=== PATIENT | male | born 1985 | race African-American/Black ===

== ENCOUNTER 2016-09-05 19:49 | Emergency (ER) | payer OTHER ==
[~2016-09-05 19:49] MED LIST: ALBUTEROL17 GM INH; AMOXICILLIN PO; AMOXICILLIN500 M1 PO; AURALGAN OTIC S14 ML OT; CIPRO500 MG/5 M PO; CIPROFLOXACIN500 M1 PO; DOXYCYCLINE HY100 M1 PO; DOXYCYCLINE HY100 M3 PO; DOXYCYCLINE150 MG PO; FLEXERIL10 MG PO; FLOXIN OTIC5 M1 AS; IBUPROFEN; IBUPROFEN800 MG PO; KETOPROFEN PO; METRONIDAZOLE PO; MOTRIN600 MG PO; NAPROSYN500 MG PO; ORUDIS75 M1 DOB; ORUDIS75 M1 PO; VICODIN 5/1 TAB 5/50 PO; ZANTAC150 MG PO
== END 2016-09-05 20:20 | disposition home or self-care (01) ==
LOC: CFTX 19:49
DX: J45.901 Unspecified asthma with (acute) exacerbation (principal)
CPT/HCPCS: 94640; 99282

== ENCOUNTER 2016-09-27 12:31 | Emergency (ER) | payer OTHER | END 2016-09-27 13:01 | disposition home or self-care (01) | LOC: CFTX 12:31 | DX: J45.31 Mild persistent asthma with (acute) exacerbation (principal); H10.10 Acute atopic conjunctivitis, unspecified eye; Z87.442 Personal history of urinary calculi | CPT/HCPCS: 99283 ==

== ENCOUNTER 2016-09-27 22:57 | Emergency (ER) | payer OTHER ==
--- NOTE | ~2016-09-27 | EKG ---
PATIENT: EMILE DUENAS UNIT #: [id number] Ventricular Rate: 86 BPM Atrial Rate: 86 BPM P-R Interval: 190 ms QRS Duration: 90 ms Q-T Interval: 356 ms QTC Calculation(Bezet): 426 ms P [place]: 26 degrees Calculated R [place]: 66 degrees Calculated T [place]: 32 degrees Diagnosis Line: Normal sinus rhythm Diagnosis Line: Normal ECG Diagnosis Line: When compared with ECG of 16-DEC-2015 12:54, Diagnosis Line: No significant change was found Diagnosis Line: Confirmed by JOSE TYLER MD ([id number]) on 10/06/2016 Diagnosis Line: 11:51:34 AM INTERPRETING MD: NAYELI GAVIN
== END 2016-09-27 23:59 | disposition home or self-care (01) ==
LOC: SED 22:57
DX: R11.2 Nausea with vomiting, unspecified (principal); J45.909 Unspecified asthma, uncomplicated
CPT/HCPCS: 93005; 99283